=== PATIENT | male | born 1990 | race African-American/Black ===

== ENCOUNTER 2017-02-18 20:02 | Emergency (ER) | payer OTHER ==
[~2017-02-18] VITALS: Ht 193 cm; Wt 80.0 kg
[2017-02-18 20:11] VITALS: BP 133/69; PULSE 96; RESP 20; TEMP 98.6; O2SAT 100
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
[2017-02-18 20:26] VITALS: BP 127/74; PULSE 80; RESP 18; O2SAT 100
[2017-02-18 20:30] VITALS: RESP 20
[2017-02-18] MEDS ORDERED: SODIUM CHLORIDE 0.9% FLUSH 10 ML FLUSH IVF PRN (20:30)
[2017-02-18] MEDS ORDERED: KETOROLAC TROMETHAMINE 30 MG/ML (IVP) VIAL IV PUSH ONE (20:30)
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
[2017-02-18] MEDS ORDERED: IBUP-232 PO (21:38)
[2017-02-18] MEDS ORDERED: CYCL5TAB PO (21:38)
[2017-02-18] MEDS ORDERED: ORPHENADRINE INJ 60 MG/2 ML AMP IM ONE (21:45)
[2017-02-18 22:08] VITALS: BP 126/54; PULSE 72; RESP 18; O2SAT 98
== END 2017-02-18 22:09 | disposition home or self-care (01) ==
LOC: NEPE 20:02
DX: S06.0X1A Concussion with loss of consciousness of 30 minutes or less, initial encounter (principal); S39.012A Strain of muscle, fascia and tendon of lower back, initial encounter; V43.52XA Car driver injured in collision with other type car in traffic accident, initial encounter; Y92.414 Local residential or business street as the place of occurrence of the external cause
CPT/HCPCS: 70450; 71010; 72100; 72125; 72170; 96372; 96374; 99285; J1885; J2360